=== PATIENT | male | born 1960 | race Caucasian/White ===

== ENCOUNTER → 2017-02-24 | Outpatient (CLI) | payer BC ==
--- NOTE | 2017-02-25 00:15 | PCVCIMAG ---
EXAM: RIGHT SUPERFICIAL VENOUS DUPLEX INDICATION: Leg pain and swelling. FINDINGS: Right leg: No thrombus in the common femoral, main femoral, or popliteal veins. These veins are compressible. 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 Right Small Saphenous Vein: At the saphenopopliteal junction the diameter is 7.4 mm, and in the calf it is 4.8 mm. There is not significant venous insufficiency/reflux throughout. Venous insufficiency/reflux duration is 0.3 seconds. There is not a cranial extension present. IMPRESSION: Satisfactory post ablation change in the right great saphenous vein. Right Small Saphenous Vein: No significant venous insufficiency/reflux is present as noted above. LOC:[id number]
== END | disposition home or self-care (01) ==
LOC: PCVCIMAG 13:50
PROVIDERS: ATTEND Nuclear Medicine Nuclear Cardiology
DX: I77.1 Stricture of artery (principal); I87.2 Venous insufficiency (chronic) (peripheral)
CPT/HCPCS: 93971